=== PATIENT | female | born 1995 | race African-American/Black ===

== ENCOUNTER 2018-06-13 07:05 | Emergency (ER) | payer SELFPAY ==
[~2018-06-13] VITALS: Ht 172.7 cm; Wt 68.0 kg
[2018-06-13] MEDS ORDERED: IV NORMAL SALINE 1000ML BAG 1,000 ML IV SCH (07:29)
[2018-06-13] MEDS ORDERED: LIDO:MAALOX 1:1 20 ML SINGLE DOSE. PO STA (07:29)
[2018-06-13] MEDS ORDERED: ONDANSETRON PF 4 MG/2 ML VIAL. IV ONE (07:30)
[2018-06-13] MEDS ORDERED: KETOROLAC 30 MG/ML VIAL. IV ONE (07:30)
[2018-06-13 07:50] LABS: BILIRUBIN,URINE NEGATIVE (NEG); CLARITY,URINE CLEAR; COLOR,URINE YELLOW; NITRITE,URINE NEGATIVE (NEG); PROTEIN,URINE NEGATIVE (NEG-TRACE)
--- NOTE | 2018-06-13 07:50 | PHYS DOC ---
Past Medical History Past Medical History: Bipolar, Migraines Additional Past Medical Histor: ADHD Additional Past Surgical Histo: RIGHT KNEE SX Additional Information: CLOSE TO A PACK/DAY Alcohol Use: Occasionally Additional Information: USED TO BE A "HEAVY DRINKER" PER PT Drug Use: Marijuana Social History Narrative: LAST USED 2-3 DAYS AGO Adult General Chief Complaint Chief Complaint: ABDOMINAL PAIN HPI HPI Patient is a 23 year old female who presents with upper abdominal pain. This has been present for the past 3 days. No relief with Tums at the onset of the pain. No other pain medication has been attempted. Pain began after 5 days of coughing which has improved over the past 3 days. Patient reports it was a nonproductive cough. No fevers. Nothing seems to make the discomfort in the upper abdomen better or worse. There is no association with eating. No nausea, vomiting, or diarrhea. No blood in the stool nor black tarry stools. Patient describes the pain as "the discomfort that you feel when a potato chip gets stuck in your throat but it feels like it stuck in my stomach." Patient does have a history of alcohol abuse and recently he stopped drinking alcohol due to having gastritis issues and spitting up blood when she would drink. This does not feel the same as that to her.[] Review of Systems Review of Systems Constitutional: Denies fever or chills [] Eyes: Denies change in visual acuity, redness, or eye pain [] HENT: Denies nasal congestion or sore throat [] Respiratory: Denies shortness of breath, and notes that the cough that she's had for the past week or so has improved over the past several days. [] Cardiovascular: No chest pain or palpitations[] GI: See history of present illness[] : Denies dysuria or hematuria [] Musculoskeletal: Denies back pain or joint pain [] Integument: Denies rash or skin lesions [] Neurologic: Denies headache, focal weakness or sensory changes [] Endocrine: Denies polyuria or polydipsia [] All other systems were reviewed and found to be within normal limits, except as documented in this note. Current Medications Current Medications Current Medications Medications (Trade) Dose Ordered Sig/Aroldo Start Time Stop Time Status Last Admin Dose Admin Ketorolac Tromethamine (Toradol 30mg Vial) 30 mg 1X ONCE 06/13/18 07:30 06/13/18 07:36 DC 06/13/18 07:47 30 MG Multi-Ingredient Mouthwash/Gargle (Gi Cocktail) 20 ml 1X STAT 06/13/18 07:29 06/13/18 07:35 DC 06/13/18 07:48 20 ML Ondansetron HCl (Zofran) 4 mg 1X ONCE 06/13/18 07:30 06/13/18 07:35 DC 06/13/18 07:47 4 MG Sodium Chloride 1,000 ml @ 1,000 mls/hr Q1H 06/13/18 07:29 06/13/18 08:28 DC 06/13/18 07:47 1,000 MLS/HR Allergies Allergies Allergies Coded Allergies Type Severity Reaction Last Updated Verified amoxicillin Allergy Severe Swelling 06/13/18 Yes adhesive Allergy Intermediate Rash 06/13/18 Yes sulfamethoxazole Allergy Intermediate Swelling 06/13/18 Yes trimethoprim Allergy Intermediate Swelling 06/13/18 Yes Physical Exam Physical Exam Constitutional: Well developed, well nourished, no acute distress, non-toxic appearance. [] HENT: Normocephalic, atraumatic, bilateral external ears normal, oropharynx dry , no oral exudates, nose normal. [] Eyes: PERRLA, EOMI, conjunctiva normal, no discharge. [] Neck: Normal range of motion, no tenderness, supple, no stridor. [] Cardiovascular:Heart rate in the 90s to 100s, regular rhythm, no murmur [] Lungs & Thorax: Bilateral breath sounds clear to auscultation [] Abdomen: Bowel sounds normal, soft, epigastric tenderness is present, no rebound , no guarding, no rigidity, no masses, no pulsatile masses. [] Skin: Warm, dry, no erythema, no rash. [] Back: No tenderness, no CVA tenderness. [] Extremities: No tenderness, no cyanosis, no clubbing, ROM intact, no edema. [] Neurologic: Alert and oriented X 3, normal motor function, normal sensory function, no focal deficits noted. [] Psychologic: Affect normal, judgement normal, mood normal. [] Current Patient Data Vital Signs Vital Signs Date Time Temp Pulse Resp B/P (MAP) Pulse Ox O2 Delivery O2 Flow Rate FiO2 06/13/18 07:19 98.1 97 18 123/75 (91) 100 Room Air 98.1 Lab Values Laboratory Tests Test 06/13/18 07:10 06/13/18 07:15 06/13/18 07:40 Urine Collection Type Unknown Urine Color Yellow Urine Clarity Clear Urine pH 6.0 Urine Specific [place] 1.025 Urine Protein Negative mg/dL (NEG-TRACE) Urine Glucose (UA) Negative mg/dL (NEG) Urine Ketones (Stick) Negative mg/dL (NEG) Urine Blood Negative (NEG) Urine Nitrite Negative (NEG) Urine Bilirubin Negative (NEG) Urine Urobilinogen Dipstick 1.0 mg/dL (0.2 mg/dL) Urine Leukocyte Esterase Negative (NEG) Urine RBC Occ /HPF (0-2) Urine WBC 1-4 /HPF (0-4) Urine Squamous Epithelial Cells Few /LPF Urine Bacteria Few /HPF (0-FEW) Urine Mucus Mod /LPF POC Urine HCG, Qualitative Hcg negative (Negative) White Blood Count 7.3 x10^3/uL (4.0-11.0) Red Blood Count 4.20 x10^6/uL (3.50-5.40) Hemoglobin 14.0 g/dL (12.0-15.5) Hematocrit 42.0 % (36.0-47.0) Mean Corpuscular Volume 100 fL (79-100) Mean Corpuscular Hemoglobin 33 pg (25-35) Mean Corpuscular Hemoglobin Concent 33 g/dL (31-37) Red Cell Distribution Width 13.4 % (11.5-14.5) Platelet Count 238 x10^3/uL (140-400) Neutrophils (%) (Auto) 47 % (31-73) Lymphocytes (%) (Auto) 42 % (24-48) Monocytes (%) (Auto) 8 % (0-9) Eosinophils (%) (Auto) 3 % (0-3) Basophils (%) (Auto) 1 % (0-3) Neutrophils # (Auto) 3.5 x10^3uL (1.8-7.7) Lymphocytes # (Auto) 3.0 x10^3/uL (1.0-4.8) Monocytes # (Auto) 0.6 x10^3/uL (0.0-1.1) Eosinophils # (Auto) 0.2 x10^3/uL (0.0-0.7) Basophils # (Auto) 0.1 x10^3/uL (0.0-0.2) Prothrombin Time 12.1 SEC (11.7-14.0) Prothrombin Time INR 0.9 (0.8-1.1) Sodium Level 143 mmol/L (136-145) Potassium Level 3.7 mmol/L (3.5-5.1) Chloride Level 106 mmol/L (98-107) Carbon Dioxide Level 27 mmol/L (21-32) Anion Gap 10 (6-14) Blood Urea Nitrogen 8 mg/dL (7-20) Creatinine 0.9 mg/dL (0.6-1.0) Estimated GFR (Cockcroft-Gault) 93.1 BUN/Creatinine Ratio 9 (6-20) Glucose Level 79 mg/dL (70-99) Calcium Level 8.7 mg/dL (8.5-10.1) Total Bilirubin 0.2 mg/dL (0.2-1.0) Aspartate Amino Transferase (AST) 10 U/L (15-37) L Alanine Aminotransferase (ALT) 18 U/L (14-59) Alkaline Phosphatase 62 U/L (46-116) Total Protein 6.7 g/dL (6.4-8.2) Albumin 3.3 g/dL (3.4-5.0) L Albumin/Globulin Ratio 1.0 (1.0-1.7) Lipase 138 U/L (73-393) Laboratory Tests 06/13/18 07:40 Laboratory Tests 06/13/18 07:40 EKG EKG [] Radiology/Procedures Radiology/Procedures ACUTE ABDOMEN SERIES EXAM: Frontal view of the chest, AP views of the abdomen in upright and supine positions. CLINICAL INDICATION: EPIGASTRIC DISCOMFORT, COUGH X 3 DAYS COMPARISON: None. FINDINGS and IMPRESSION: The heart is not enlarged. Mediastinal and hilar contours are normal. No focal parenchymal airspace opacity. No pleural effusion or pneumothorax. No abnormal small or large bowel dilatation to suggest bowel obstruction. Marked colonic stool content. No abnormal soft tissue mass effect. No suspicious calcifications are seen. No free intraperitoneal gas. [] Course & Med Decision Making Course & Med Decision Making Pertinent Labs and Imaging studies reviewed. (See chart for details) Medical decision making: No evidence of obstruction, perforation, pancreatitis, cholecystitis, appendicitis, urinary tract infection/pyelonephritis, nor other significant etiology for this abdominal discomfort. ED course: Patient arrived, was placed in bed, in tolerated exam well. Patient had IV access established, IV fluids were administered with improvement in her heart rate. Patient was by mouth tolerant while in the emergency department. She did receive relief with the medicines administered. Laboratory and imaging findings were discussed with the patient who voiced understanding. All questions were answered. Patient was discharged in improved condition.[] Dragon Disclaimer Dragon Disclaimer This electronic medical record was generated, in whole or in part, using a voice recognition dictation system. Departure Departure Impression: Primary Impression: Abdominal pain Disposition: HOME, SELF-CARE Condition: IMPROVED Patient Instructions: Abdominal Pain (Nonspecific), Gastritis, Adult Additional Instructions: Follow-up with your regular doctor in 2 days. If you do not have regular doctor a list of local clinics will be provided for you. Return to the ER if worsening discomfort, unable to tolerate liquids, or any other concerns. Scripts Metoclopramide Hcl (REGLAN) 10 Mg Tablet 10 MG PO QIDACHS, #30 TAB 0 Refills Prov: CHI MORRIS DO 06/13/18 Hyoscyamine Sulfate (LEVSIN) 0.125 Mg Tablet 0.125 MG PO QID, #30 TAB Prov: CHI MORRIS DO 06/13/18 Lansoprazole (PREVACID) 15 Mg Capsule. 15 MG PO DAILY, #20 CAP Prov: CHI MORRIS DO 06/13/18 Problem Qualifiers Primary Impression: Abdominal pain Abdominal location: epigastric Qualified Codes: R10.13 - Epigastric pain CHI MORRIS DO Jun 13, 2018 07:50
[2018-06-13 07:54] LABS: BASO # 0.1 x10^3/uL (0.0-0.2); BASO % 1 % (0-3); EOS # 0.2 x10^3/uL (0.0-0.7); EOS % 3 % (0-3); LYMPH % 42 % (24-48); MEAN CORPUSCULAR HEMOGLOBIN 33 pg (25-35); MEAN CORPUSCULAR HGB CONC 33 g/dL (31-37); MEAN CORPUSCULAR VOLUME 100 fL (79-100); MONO # 0.6 x10^3/uL (0.0-1.1); MONO % 8 % (0-9); NEUT # 3.5 x10^3uL (1.8-7.7); NEUT % 47 % (31-73); PLATELET COUNT 238 x10^3/uL (140-400); RED CELL DISTRIBUTION WIDTH 13.4 % (11.5-14.5); WHITE BLOOD COUNT 7.3 x10^3/uL (4.0-11.0)
[2018-06-13 07:57] LABS: BACTERIA,URINE FEW /HPF (0-FEW); RBC,URINE OCC /HPF (0-2); SQUAMOUS EPITHELIAL CELL,UR FEW /LPF
[2018-06-13 07:59] LABS: CALCIUM 8.7 mg/dL (8.5-10.1); CREATININE 0.9 mg/dL (0.6-1.0); GFR 93.1; POTASSIUM 3.7 mmol/L (3.5-5.1)
[2018-06-13 08:04] LABS: ALBUMIN 3.3 g/dL (3.4-5.0); TOTAL BILIRUBIN 0.2 mg/dL (0.2-1.0); TOTAL PROTEIN 6.7 g/dL (6.4-8.2)
[2018-06-13 08:10] LABS: PROTHROMBIN TIME PATIENT 12.1 SEC (11.7-14.0)
--- NOTE | 2018-06-13 08:49 | RAD ---
EXAM: Frontal view of the chest, AP views of the abdomen in upright and supine positions. CLINICAL INDICATION: EPIGASTRIC DISCOMFORT, COUGH X 3 DAYS COMPARISON: None. FINDINGS and IMPRESSION: The heart is not enlarged. Mediastinal and hilar contours are normal. No focal parenchymal airspace opacity. No pleural effusion or pneumothorax. No abnormal small or large bowel dilatation to suggest bowel obstruction. Marked colonic stool content. No abnormal soft tissue mass effect. No suspicious calcifications are seen. No free intraperitoneal gas. Electronically signed by: Reese Peters MD (06/13/2018 8:44 AM) [id number]
[2018-06-13] MEDS ORDERED: LANS15CA78 PO (09:03)
[2018-06-13] MEDS ORDERED: HYOS0.1264 PO (09:03)
[2018-06-13] MEDS ORDERED: METO10TA81 PO (09:03)
[2018-06-13 09:20] VITALS: BP 118/70
== END 2018-06-13 09:32 | disposition home or self-care (01) ==
LOC: ER 07:05
DX: R10.13 Epigastric pain (principal); R05 Cough; F31.9 Bipolar disorder, unspecified; G43.909 Migraine, unspecified, not intractable, without status migrainosus; F17.200 Nicotine dependence, unspecified, uncomplicated; F90.9 Attention-deficit hyperactivity disorder, unspecified type; F10.10 Alcohol abuse, uncomplicated; Z88.1 Allergy status to other antibiotic agents; Z88.8 Allergy status to other drugs, medicaments and biological substances; Z88.2 Allergy status to sulfonamides; Y90.9 Presence of alcohol in blood, level not specified
CPT/HCPCS: 36415; 74022; 80053; 81001; 81025; 83690; 85025; 85610; 96374; 96375; 99284; J1885; J2405; J7030